=== PATIENT | male | born 1960 | race Caucasian/White ===

== ENCOUNTER 2023-11-26 15:33 | Emergency (ER) | payer MEDICAID ==
[~2023-11-26] VITALS: Ht 154.9 cm; Wt 98.8 kg
[2023-11-26] MEDS ORDERED: CEPH500C PO (16:48)
[2023-11-26 17:05] VITALS: BP 137/90; PULSE 115; RESP 17; TEMP 98.4; O2SAT 98
[2023-11-26] MEDS: cefTRIAXone SOD 1,000 MG VL IM ONE (17:09)
[2023-11-26] MEDS: KETOROLAC TROMETH 30 MG/ML 1ML VIAL IM ONE (17:09)
== END 2023-11-26 17:21 | disposition home or self-care (01) ==
LOC: ER 15:33
DX: L02.01 Cutaneous abscess of face (principal)
CPT/HCPCS: 96372; 99284; J0696; J1885